=== PATIENT | male | born 1940 | race Two or more races ===

== ENCOUNTER 2017-06-01 23:48 | Inpatient (IN) | payer MEDICARE, OTHER ==
[~2017-06-01] VITALS: Ht 172.7 cm; Wt 80.2 kg
[~2017-06-01 23:48] MED LIST: ALPR-229 PO; ATO40T PO; BUME2TAB3 PO; CARV25TA55 PO; CLOP75TA41 PO; HYDR-4298 PO; LEVO-28 PO; NIFE30TA76 PO; OMEP20CA74 OR
[2017-06-02] MEDS ORDERED: ONDANSETRON HCL 4 MG/2 ML VIAL IV ONE (00:30)
[2017-06-02 00:32] LABS: Basophils # (auto) 0.1 uL; Basophils % (auto) 0.6 % (0.0-2.0); Eosinophils # (auto) 0.1 uL; Eosinophils % (auto) 1.3 % (0.0-7.0); Hematocrit 37.7 % (41.0-53.0); Hemoglobin 12.8 g/dL (13.5-17.5); Lymphocytes # (auto) 3.3 uL; Lymphocytes % (auto) 30.6 % (10.0-50.0); Mean Corpuscular Hemoglobin 31.6 pg (28.0-32.0); Monocytes # (auto) 0.8 uL; Neutrophils # (auto) 6.5 uL; Neutrophils % (auto) 60.5 % (37.0-80.0); Platelet Count (auto) 172 10^3/uL (140-450); Red Blood Cells 4.06 10^6/uL (4.5-5.90); Red Cell Distribution Width 13.3 % (11.8-14.3); White Blood Cell 10.8 10^3/uL (4.4-10.8)
[2017-06-02 00:48] LABS: Alanine Aminotransferase 64 U/L (16-61); Albumin 4.1 g/dL (3.4-5.0); Anion Gap 11 (5-15); Aspartate Aminotransferase 42 U/L (15-37); BUN/Creatinine Ratio 21.5; Blood Urea Nitrogen 79 mg/dL (7-18); Carbon Dioxide 16 mmol/L (21-32); Chloride 108 mmol/L (98-107); GFR African American 21 mL/min; GFR Non-African American 17 mL/min; Glucose 105 mg/dL (74-106); Magnesium 1.4 mg/dL (1.6-2.6); Potassium 4.3 mmol/L (3.5-5.1); Sodium 135 mmol/L (136-145)
[2017-06-02 00:52] LABS: Alkaline Phosphatase 71 U/L (45-117); Bilirubin, Total 0.3 mg/dL (0.2-1.0); INR 0.99 (0.9-1.15); Partial Thromboplastin Time 25.7 sec (22.64-33.71); Prothrombin Time 10.8 sec (9.37-12.3); Total Protein 7.8 g/dL (6.4-8.2)
[2017-06-02] MEDS ORDERED: MORPHINE SULFATE 4 MG/ML SYR/VIAL IV ONE (01:15)
[2017-06-02] MEDS ORDERED: ALPR1TAB7 PO (11:19)
[2017-06-02] MEDS ORDERED: CLOPIDOGREL BISULFATE 75 MG TAB PO ONE (11:45)
[2017-06-02] MEDS ORDERED: MORPHINE SULFATE 4 MG/ML SYR/VIAL IV PRN ×2 (11:45)
[2017-06-02] MEDS ORDERED: ASPirin-EC 81 mg tab PO ONE (11:45)
[2017-06-02] MEDS ORDERED: hydrALAZINE HCL 25 MG TAB PO ONE (11:45)
[2017-06-02] MEDS ORDERED: PANTOPRAZOLE 40 MG TAB PO ONE ×2 (11:45)
[2017-06-02] MEDS ORDERED: CARVEDILOL 12.5 MG TAB PO ONE (11:45)
[2017-06-02] MEDS ORDERED: ZOLPIDEM TARTRATE 5 MG TAB PO PRN (11:45)
[2017-06-02] MEDS ORDERED: NITROGLYCERIN 0.4 MG SL TAB SL PRN ×2 (11:45)
[2017-06-02] MEDS ORDERED: CALCIUM CARB 500 MG CHEW TAB PO ONE (11:45)
[2017-06-02] MEDS ORDERED: BUMETANIDE 1 MG TAB PO ONE (11:45)
[2017-06-02] MEDS ORDERED: ALUM & MAG HYDROX-SIMETH LIQ(MAALOX) 30 ML PO ONE (11:45)
[2017-06-02] MEDS ORDERED: LORazepam 0.5 MG TAB PO PRN (11:45)
[2017-06-02] MEDS ORDERED: ACETAMINOPHEN 325 MG TAB PO PRN (11:45)
[2017-06-02] MEDS ORDERED: SPIRONOLACTONE 25 MG TAB PO ONE ×2 (11:45)
[2017-06-02] MEDS: hydrALAZINE HCL 25 MG TAB PO SCH ×2 (12:00→22:00)
[2017-06-02] MEDS ORDERED: ENALAPRIL MALEATE 2.5 MG TAB PO ONE (12:00)
[2017-06-02] MEDS ORDERED: MAGNESIUM OXIDE 400 MG TAB PO ONE (12:15)
[2017-06-02] MEDS: ALBUTEROL SULF 2.5 MG/0.5ML(0.5%) NEB SOLN NEB SCH ×2 (12:25→19:51)
[2017-06-02] MEDS ORDERED: OME20T PO (12:57)
[2017-06-02] MEDS ORDERED: TERA2CAP45 PO (12:57)
[2017-06-02] MEDS ORDERED: SPIR100T21 PO (12:57)
[2017-06-02] MEDS ORDERED: HYDR-4683 PO (12:57)
[2017-06-02] MEDS ORDERED: MULT-228 PO (12:57)
[2017-06-02 13:59] VITALS: BP 115/64
[2017-06-02] MEDS ORDERED: ALBUAER3 IN (14:15)
[2017-06-02] MEDS: SODIUM CHLOR 0.9% PF (SALINE LOCK) 10ML VIAL IV SCH ×2 (14:29→21:53)
[2017-06-02] MEDS: BUMETANIDE 1 MG TAB PO SCH (15:31)
[2017-06-02 16:00] VITALS: BP 110/52
[2017-06-02 16:58] VITALS: BP 109/51
[2017-06-02 20:00] VITALS: BP 110/50
[2017-06-02] MEDS: ATORVASTATIN 20 MG TAB PO SCH (21:47)
[2017-06-02] MEDS: HYDROcodone-ACET 5/325MG TAB PO PRN (21:52)
[2017-06-02] MEDS: TERAZOSIN HCL 1 MG CAP PO SCH (22:00)
[2017-06-02] MEDS: ENALAPRIL MALEATE 2.5 MG TAB PO SCH (22:00)
[2017-06-02] MEDS: CALCIUM CARB 500 MG CHEW TAB PO SCH (22:00)
[2017-06-02 23:08] VITALS: BP 110/50
[2017-06-02] MEDS: CARVEDILOL 3.125 MG TAB PO SCH (23:22)
[2017-06-03] VITALS (7 sets, daily range): BP systolic 95–114; BP diastolic 48–71
[2017-06-03] MEDS: ALBUTEROL SULF 2.5 MG/0.5ML(0.5%) NEB SOLN NEB SCH ×4 (00:45→20:12)
[2017-06-03 06:15] LABS: Basophils # (auto) 0.1 uL; Basophils % (auto) 0.9 % (0.0-2.0); Eosinophils # (auto) 0.1 uL; Eosinophils % (auto) 1.8 % (0.0-7.0); Hematocrit 35.1 % (41.0-53.0); Lymphocytes # (auto) 2.7 uL; Lymphocytes % (auto) 36.4 % (10.0-50.0); Mean Corpuscular Hemoglobin 32.1 pg (28.0-32.0); Mean Corpuscular Hgb Conc. 34.3 g/dL (32.0-36.0); Mean Corpuscular Volume 93.4 fL (80.0-100.0); Monocytes # (auto) 0.5 uL; Neutrophils % (auto) 53.9 % (37.0-80.0); Nucleated Red Blood Cells % 0.1 %; Platelet Count (auto) 151 10^3/uL (140-450); Red Blood Cells 3.76 10^6/uL (4.5-5.90); Red Cell Distribution Width 13.5 % (11.8-14.3); White Blood Cell 7.4 10^3/uL (4.4-10.8)
[2017-06-03 06:17] LABS: Alanine Aminotransferase 40 U/L (16-61); Albumin 3.7 g/dL (3.4-5.0); Alkaline Phosphatase 60 U/L (45-117); Anion Gap 7 (5-15); Aspartate Aminotransferase 25 U/L (15-37); BUN/Creatinine Ratio 20.3; Bilirubin, Total 0.5 mg/dL (0.2-1.0); Blood Urea Nitrogen 65 mg/dL (7-18); Calcium 8.9 mg/dL (8.5-10.1); Carbon Dioxide 24 mmol/L (21-32); Chloride 105 mmol/L (98-107); Cholesterol 163 mg/dL (< 200); GFR African American 25 mL/min; GFR Non-African American 20 mL/min; Glucose 110 mg/dL (74-106); HDL Cholesterol 44 mg/dL (40-59); LDL Cholesterol 91 mg/dL (< 100); Magnesium 1.7 mg/dL (1.6-2.6); Potassium 4.5 mmol/L (3.5-5.1); Sodium 136 mmol/L (136-145); Total Protein 7.1 g/dL (6.4-8.2); Triglycerides 205 mg/dL (< 150)
[2017-06-03] MEDS: MULTIPLE VITAMINS W/ MINERALS TAB PO SCH (09:11)
[2017-06-03] MEDS: CALCIUM CARB 500 MG CHEW TAB PO SCH ×2 (09:11→22:34)
[2017-06-03] MEDS: DOCUSATE SOD 100 MG CAP PO SCH (09:11)
[2017-06-03] MEDS: MAGNESIUM OXIDE 400 MG TAB PO SCH (09:12)
[2017-06-03] MEDS: PANTOPRAZOLE 40 MG TAB PO SCH (09:12)
[2017-06-03] MEDS: ASPirin-EC 81 mg tab PO SCH (09:12)
[2017-06-03] MEDS: CLOPIDOGREL BISULFATE 75 MG TAB PO SCH (09:12)
[2017-06-03] MEDS: hydrALAZINE HCL 25 MG TAB PO SCH ×2 (09:14→21:35)
[2017-06-03] MEDS: SODIUM CHLOR 0.9% PF (SALINE LOCK) 10ML VIAL IV SCH ×3 (09:14→22:32)
[2017-06-03] MEDS: BUMETANIDE 1 MG TAB PO SCH (09:15)
[2017-06-03] MEDS: CARVEDILOL 3.125 MG TAB PO SCH ×2 (09:15→21:36)
[2017-06-03] MEDS: ENALAPRIL MALEATE 2.5 MG TAB PO SCH (09:16)
[2017-06-03] MEDS ORDERED: CARVEDILOL 12.5 MG TAB PO SCH (10:00)
[2017-06-03] MEDS ORDERED: SPIRONOLACTONE 25 MG TAB PO SCH (10:00)
[2017-06-03] MEDS ORDERED: ASPirin 81 mg TAB PO SCH (10:00)
[2017-06-03] MEDS ORDERED: CLOPIDOGREL BISULFATE 75 MG TAB PO SCH (10:00)
[2017-06-03] MEDS: SODIUM CHLORIDE 0.9% 1,000 ML IV SCH (12:20)
[2017-06-03] MEDS: RANOLAZINE ER 500 MG TAB PO SCH ×2 (12:20→22:00)
[2017-06-03] MEDS: TERAZOSIN HCL 1 MG CAP PO SCH (21:36)
[2017-06-03] MEDS: ATORVASTATIN 20 MG TAB PO SCH (22:32)
[2017-06-04] MEDS: ALBUTEROL SULF 2.5 MG/0.5ML(0.5%) NEB SOLN NEB SCH ×4 (01:00→19:10)
[2017-06-04] MEDS: SODIUM CHLORIDE 0.9% 1,000 ML IV SCH ×2 (03:11→15:56)
[2017-06-04 05:00] VITALS: BP 123/58
[2017-06-04 05:11] LABS: Basophils # (auto) 0.1 uL; Basophils % (auto) 0.9 % (0.0-2.0); Eosinophils # (auto) 0.2 uL; Eosinophils % (auto) 1.7 % (0.0-7.0); Hematocrit 34.2 % (41.0-53.0); Hemoglobin 11.9 g/dL (13.5-17.5); Lymphocytes # (auto) 2.9 uL; Lymphocytes % (auto) 32.3 % (10.0-50.0); Mean Corpuscular Hemoglobin 32.5 pg (28.0-32.0); Mean Corpuscular Hgb Conc. 34.9 g/dL (32.0-36.0); Mean Corpuscular Volume 93.3 fL (80.0-100.0); Monocytes # (auto) 0.7 uL; Monocytes % (auto) 7.5 % (0.0-12.0); Neutrophils # (auto) 5.1 uL; Neutrophils % (auto) 57.6 % (37.0-80.0); Nucleated Red Blood Cells % 0.1 %; Platelet Count (auto) 147 10^3/uL (140-450); Red Blood Cells 3.67 10^6/uL (4.5-5.90); Red Cell Distribution Width 13.3 % (11.8-14.3); White Blood Cell 8.9 10^3/uL (4.4-10.8)
[2017-06-04 05:28] LABS: Albumin 3.4 g/dL (3.4-5.0); BUN/Creatinine Ratio 23.5; Calcium 9.3 mg/dL (8.5-10.1); Potassium 4.8 mmol/L (3.5-5.1)
[2017-06-04 05:31] LABS: Bilirubin, Total 0.4 mg/dL (0.2-1.0); Total Protein 6.7 g/dL (6.4-8.2)
[2017-06-04] MEDS: SODIUM CHLOR 0.9% PF (SALINE LOCK) 10ML VIAL IV SCH ×3 (05:56→21:46)
[2017-06-04 08:00] VITALS: BP 110/62
[2017-06-04] MEDS: hydrALAZINE HCL 25 MG TAB PO SCH ×2 (10:00→21:24)
[2017-06-04] MEDS: DOCUSATE SOD 100 MG CAP PO SCH (10:04)
[2017-06-04] MEDS: ASPirin-EC 81 mg tab PO SCH (10:04)
[2017-06-04] MEDS: CARVEDILOL 3.125 MG TAB PO SCH ×2 (10:05→21:24)
[2017-06-04] MEDS: MULTIPLE VITAMINS W/ MINERALS TAB PO SCH (10:06)
[2017-06-04] MEDS: PANTOPRAZOLE 40 MG TAB PO SCH (10:06)
[2017-06-04] MEDS: CLOPIDOGREL BISULFATE 75 MG TAB PO SCH (10:06)
[2017-06-04] MEDS: MAGNESIUM OXIDE 400 MG TAB PO SCH (10:07)
[2017-06-04] MEDS: CALCIUM CARB 500 MG CHEW TAB PO SCH ×2 (10:07→21:46)
[2017-06-04] MEDS: RANOLAZINE ER 500 MG TAB PO SCH ×2 (10:16→21:46)
[2017-06-04] MEDS: HYDROcodone-ACET 5/325MG TAB PO PRN ×2 (10:21→17:28)
[2017-06-04 12:00] VITALS: BP 125/58
[2017-06-04 17:00] VITALS: BP 97/51
[2017-06-04] MEDS: TERAZOSIN HCL 1 MG CAP PO SCH (21:25)
[2017-06-04] MEDS: ATORVASTATIN 20 MG TAB PO SCH (21:46)
[2017-06-04 22:00] VITALS: BP 127/49
[2017-06-05] VITALS (7 sets, daily range): BP systolic 123–146; BP diastolic 58–63
[2017-06-05] MEDS: ALBUTEROL SULF 2.5 MG/0.5ML(0.5%) NEB SOLN NEB SCH ×5 (01:22→23:34)
[2017-06-05] MEDS: SODIUM CHLOR 0.9% PF (SALINE LOCK) 10ML VIAL IV SCH ×3 (05:27→21:35)
[2017-06-05] MEDS: SODIUM CHLORIDE 0.9% 1,000 ML IV SCH ×2 (05:27→18:31)
[2017-06-05 06:15] LABS: BUN/Creatinine Ratio 20.8; Calcium 9.2 mg/dL (8.5-10.1)
[2017-06-05] MEDS: CALCIUM CARB 500 MG CHEW TAB PO SCH ×2 (09:11→21:36)
[2017-06-05] MEDS: ASPirin-EC 81 mg tab PO SCH (09:11)
[2017-06-05] MEDS: APIXABAN 5 MG TAB PO SCH ×2 (09:12→21:35)
[2017-06-05] MEDS: MAGNESIUM OXIDE 400 MG TAB PO SCH (09:12)
[2017-06-05] MEDS: PANTOPRAZOLE 40 MG TAB PO SCH (09:12)
[2017-06-05] MEDS: DOCUSATE SOD 100 MG CAP PO SCH (09:13)
[2017-06-05] MEDS: hydrALAZINE HCL 25 MG TAB PO SCH ×2 (09:13→21:35)
[2017-06-05] MEDS: CARVEDILOL 3.125 MG TAB PO SCH ×2 (09:14→21:35)
[2017-06-05] MEDS: MULTIPLE VITAMINS W/ MINERALS TAB PO SCH (09:14)
[2017-06-05] MEDS: RANOLAZINE ER 500 MG TAB PO SCH ×2 (09:14→21:36)
[2017-06-05] MEDS: ATORVASTATIN 20 MG TAB PO SCH (21:36)
[2017-06-05] MEDS: TERAZOSIN HCL 1 MG CAP PO SCH (21:36)
[2017-06-06 05:00] VITALS: BP 111/59
[2017-06-06] MEDS: SODIUM CHLOR 0.9% PF (SALINE LOCK) 10ML VIAL IV SCH ×3 (05:53→21:44)
[2017-06-06] MEDS: SODIUM CHLORIDE 0.9% 1,000 ML IV SCH ×2 (05:57→21:44)
[2017-06-06] MEDS: ALBUTEROL SULF 2.5 MG/0.5ML(0.5%) NEB SOLN NEB SCH ×3 (06:00→19:59)
[2017-06-06 07:44] LABS: BUN/Creatinine Ratio 14.8; Calcium 8.9 mg/dL (8.5-10.1); Potassium 4.7 mmol/L (3.5-5.1)
[2017-06-06] MEDS ORDERED: ADENOSINE 64 MG in GIVE UN-DILUTED 0 ML IV ONE (08:15)
[2017-06-06 09:00] VITALS: BP 139/52
[2017-06-06 09:19] VITALS: BP 151/69
[2017-06-06] MEDS ORDERED: ALBUTEROL SULF 2.5 MG/0.5ML(0.5%) NEB SOLN ONE (09:32)
[2017-06-06] MEDS ORDERED: IPRATROPIUM BROM 0.5 MG/2.5ML INH SOL ONE (09:32)
[2017-06-06] MEDS: APIXABAN 5 MG TAB PO SCH ×2 (10:52→21:46)
[2017-06-06] MEDS: DOCUSATE SOD 100 MG CAP PO SCH (10:52)
[2017-06-06] MEDS: PANTOPRAZOLE 40 MG TAB PO SCH (10:52)
[2017-06-06] MEDS: CARVEDILOL 3.125 MG TAB PO SCH ×3 (10:53→21:45)
[2017-06-06] MEDS: ASPirin-EC 81 mg tab PO SCH (10:53)
[2017-06-06] MEDS: MULTIPLE VITAMINS W/ MINERALS TAB PO SCH (10:53)
[2017-06-06] MEDS: RANOLAZINE ER 500 MG TAB PO SCH ×2 (10:53→22:02)
[2017-06-06] MEDS: CALCIUM CARB 500 MG CHEW TAB PO SCH ×2 (10:53→21:47)
[2017-06-06] MEDS: MAGNESIUM OXIDE 400 MG TAB PO SCH (10:53)
[2017-06-06] MEDS: hydrALAZINE HCL 25 MG TAB PO SCH ×3 (10:53→21:44)
[2017-06-06 13:05] VITALS: BP 165/66
[2017-06-06 17:00] VITALS: BP 111/54
[2017-06-06 21:31] VITALS: BP 112/60
[2017-06-06] MEDS: TERAZOSIN HCL 1 MG CAP PO SCH (21:46)
[2017-06-06] MEDS: ATORVASTATIN 20 MG TAB PO SCH (21:47)
[2017-06-07] MEDS: ALBUTEROL SULF 2.5 MG/0.5ML(0.5%) NEB SOLN NEB SCH ×2 (00:10→06:58)
[2017-06-07 05:05] VITALS: BP 115/59
[2017-06-07] MEDS: SODIUM CHLOR 0.9% PF (SALINE LOCK) 10ML VIAL IV SCH (05:26)
[2017-06-07 06:09] LABS: BUN/Creatinine Ratio 17.2; Calcium 8.8 mg/dL (8.5-10.1); Potassium 4.8 mmol/L (3.5-5.1)
[2017-06-07 07:52] VITALS: BP 123/60
[2017-06-07] MEDS: ASPirin-EC 81 mg tab PO SCH (09:47)
[2017-06-07] MEDS: APIXABAN 5 MG TAB PO SCH (09:47)
[2017-06-07] MEDS: CALCIUM CARB 500 MG CHEW TAB PO SCH (09:47)
[2017-06-07] MEDS: DOCUSATE SOD 100 MG CAP PO SCH (09:47)
[2017-06-07] MEDS: MAGNESIUM OXIDE 400 MG TAB PO SCH (09:47)
[2017-06-07] MEDS: PANTOPRAZOLE 40 MG TAB PO SCH (09:47)
[2017-06-07] MEDS: MULTIPLE VITAMINS W/ MINERALS TAB PO SCH (09:47)
[2017-06-07] MEDS: SODIUM CHLORIDE 0.9% 1,000 ML IV SCH (09:47)
[2017-06-07] MEDS: CARVEDILOL 3.125 MG TAB PO SCH (09:49)
[2017-06-07] MEDS: hydrALAZINE HCL 25 MG TAB PO SCH (09:50)
== END 2017-06-07 14:42 | disposition home or self-care (01) | DRG 291 ==
LOC: ER 23:48 → TELE 23:49 → TELE-WESTW 06-02 13:31
PROVIDERS: ADMIT Internal Medicine; ATTEND Internal Medicine
DX: I13.0 Hypertensive heart and chronic kidney disease with heart failure and stage 1 through stage 4 chronic kidney disease, or unspecified chronic kidney disease (principal); I50.43 Acute on chronic combined systolic (congestive) and diastolic (congestive) heart failure; D68.59 Other primary thrombophilia; E86.0 Dehydration; N18.4 Chronic kidney disease, stage 4 (severe); N17.9 Acute kidney failure, unspecified; E87.1 Hypo-osmolality and hyponatremia; E83.42 Hypomagnesemia; I48.0 Paroxysmal atrial fibrillation; I48.92 Unspecified atrial flutter; D63.8 Anemia in other chronic diseases classified elsewhere; I73.9 Peripheral vascular disease, unspecified; J98.11 Atelectasis; I25.110 Atherosclerotic heart disease of native coronary artery with unstable angina pectoris; I49.3 Ventricular premature depolarization; M94.0 Chondrocostal junction syndrome [Tietze]; J44.9 Chronic obstructive pulmonary disease, unspecified; I25.2 Old myocardial infarction; Z79.01 Long term (current) use of anticoagulants; Z82.49 Family history of ischemic heart disease and other diseases of the circulatory system; Z86.718 Personal history of other venous thrombosis and embolism; Z86.73 Personal history of transient ischemic attack (TIA), and cerebral infarction without residual deficits; Z87.891 Personal history of nicotine dependence; Z95.0 Presence of cardiac pacemaker; Z98.61 Coronary angioplasty status
CPT/HCPCS: 36415; 71045; 78452; 80048; 80053; 80061; 83735; 83880; 84484; 85025; 85610; 85730; 93005; 93017; 93306; 94640; 96374; 96375; J0153; J2405